=== PATIENT | female | born 1965 | race Caucasian/White ===

== ENCOUNTER 2020-01-19 07:30 | Day surgery (SDC) | payer BC ==
[2020-01-19] MEDS ORDERED: Ringers Lactate 1,000 ML IV ONE (08:36)
--- OUTSIDE RECORDS SUMMARY | 2020-01-19 08:50 | XMS REPORT ---
:1965 Author Organization eClinicalWorks Care Team Providers Name Role Phone Buchanan, Patricia Provider Role Unavailable Allergies No Known Allergies Problems Problem Type Condition Code Onset Dates Condition Statu s Problem Mixed hyperlipidemia E78.2 Active Problem Mild major depression, single F32.0 Active episode Problem Obstructive sleep apnea syndrome G47.33 Active Problem Skin tags, multiple acquired L91.8 Active Problem TB (pulmonary tuberculosis) A15.0 Active Problem Elevated liver enzymes R74.8 Activ e Problem Neuropathy of both feet G57.93 Acti ve Problem Essential (primary) hypertension I10 Active Medications No Known Medications Results No Known Results Summary Purpose eClinicalWorks Submission
--- OUTSIDE RECORDS SUMMARY | 2020-01-19 08:50 | XMS REPORT ---
:1965 Author Organization eClinicalWorks Care Team Providers Name Role Phone Patricia Miller Provider Role Unavailable Allergies, Adverse Reactions, Alerts Substance Reaction Event Type N.K.D.A. Info Not Available Non Drug Allergy Problems Problem Type Condition Code Onset Dates Condition Statu s Assessment Essential (primary) hypertension I10 Active Assessment Elevated liver enzymes R74.8 Activ e Assessment Mild major depression, single F32.0 Active episode Assessment Screening for colon cancer Z12.11 A ctive Assessment Mixed hyperlipidemia E78.2 Active Assessment Obstructive sleep apnea syndrome G47.33 Active Problem Essential (primary) hypertension I10 Active Problem Obstructive sleep apnea syndrome G47.33 Active Problem Mild major depression, single F32.0 Active episode Problem Elevated liver enzymes R74.8 Activ e Problem Neuropathy of both feet G57.93 Acti ve Problem Mixed hyperlipidemia E78.2 Active Medications Medication Code Code Instructions Start End Status Dosage System Date Date BuPROPion HCl ND 99214738026 200 MG Orally Active 1 tablet ER (SR) Once a day in the morning Milk Thistle [facility] 04162409728 500 MG Orally Active a s directed Zestoretic [facility] 79992718068 20-12.5 MG Active take 1 Orally Once a tablet by day mouth every day Metoprolol ND 47699477836 25 MG Orally Dec 28, Active 1 ta blet Succinate ER Once a day 2019 Vitamin C ND 39353394156 250 MG Orally Active 1 ta blet Once a day Zinc ND 97313925722 50 MG Orally Active 1 table t Once a day Lopid ND 16838662314 600 MG Orally Inactive 1 tab let Twice a day Gabapentin ND 73288205989 300 MG Active TAKE 2 CAPSULES BY MOUTH TWICE A DAY Rosuvastatin ND 50454382480 20 MG Orally Dec 28, Active 1 tablet Calcium Once a day 2019 Black Cohosh ND 01433003767 40 MG Orally Active as Hot Flash directed Relief Vitamin D-3 ND 79191145352 5000 UNIT Active 1 tabl et Orally Once a day Results No Known Results Summary Purpose eClinicalWorks Submission
--- OUTSIDE RECORDS SUMMARY | 2020-01-19 08:50 | XMS REPORT | Continuity of Care Document ---
:1965 Author Organization [facility] t Address [facility] [place] [address] Care Team Providers Name Role Phone Unavailable Unavailable Unavailable Problems Condition Condition Condition Status Onset Resolution Last Treating Co mments Source Name Details Category Date Date Treatment Clinician Date Essential Essential Problem Active [facility]primary[facility] (primary[facility] - hypertensi hypertensi Me moria on on l [facility] ent Clinics Obstructiv Obstructiv Problem Active [facility] sleep e sleep [facility] - apnea apnea Memoria syndrome syndrome l [facility] ent [facility] Neuropathy Neuropathy Problem Active [facility] of both of both [facility] - feet feet Memoria l [facility] ent [facility] Mixed Mixed Problem Active [facility] hyperlipid hyperlipid Miriam kes - emia emia [facility] ent Clinics Elevated Elevated Problem Active [facility] liver liver [facility] - enzymes enzymes [facility] Mild major Mild major Problem Active [facility] depression depression Miriam kes - , single , single Memori a episode episode l [facility] Screening Screening Diagnosis Active [facility] for colon for colon [facility] Allergies, Adverse Reactions, Alerts This patient has no known allergies or adverse reactions. Medications Ordered Filled Start Stop Current Ordering Indication Dosage Frequency Signature Comments Components Source Medication Medication Date Date Medication? Clinician (SIG) Name Name Metoprolol Metoprolol Yes Patricia [address] [facility] Succinate Succinate 12-28 [place] [facility] - ER ER 00:00: Memoria [facility] Rosuvastati Rosuvastati Yes Patricia [address] [facility] n Calcium n Calcium 8 [place] Luke s - 00:00: Memoria [facility] BuPROPion BuPROPion Yes Patricia [address] [facility] HCl ER (SR) HCl ER (SR) [place] in the [facility] - morning Memoria l [facility] ent Clinics Milk Milk Yes Patricia as [facility] Thistle Thistle [place] directed Luke s - Memoria l [facility] ent Clinics Zestoretic Zestoretic Yes Patricia take [address] [facility] [place] tablet by [facility] - mouth Memoria every day l [facility] Vitamin C Vitamin C Yes Patricia [address] [facility] [place] [facility] - [facility]oria l [facility] Zinc Zinc Yes Patricia [address] [facility] [place] [facility] - Memoria l [facility] ent [facility]ics Lopid Lopid Yes Patricia [address] [facility] [place] [facility] - Memoria l [facility] Gabapentin Gabapentin Yes Patricia TAKE [address] [facility] [place] CAPSULES Lukes - BY MOUTH Memoria TWICE A l DAY [facility]ics Black Black Yes Patricia as [facility] Cohosh Hot Cohosh Hot [place] directed [facility]ukes - Flash Flash Memoria Relief Relief l [facility]ics Vitamin D-3 Vitamin D-3 Yes Patricia [address] [facility] [place] [facility] - Memoria l [facility] ent Clinics Immunizations Ordered Filled Immunization Date Status Comments Sour e Immunization Name Name Flucelvax - single Flucelvax - single 2019-03-[address] [facility] - dose syringe dose syringe 00:00:00 [facility] Tb PPD intradermal, Tb PPD intradermal, 2017-11-[address] [facility] - 00:00[facility]00 [facility] Procedures This patient has no known procedures. Encounters Start End Encounter Admission Attending Care Care Encounter Source Date/Time Date/Time Type Type Clinicians Facility Department ID 2019-12-29 2019-12-29 Outpatient Akil Suarez [id number] [facility] 16:40:00 16:40:00 [facility] Medicine Medicine Outpati ent Clinics 2019-12-09 2019-12-09 [place] [place] [id number] [facility] 14:56:00 14:56:00 [facility] Medicine Medicine Outpati ent Clinics 2019-07-28 2019-07-28 [place] [id number] [facility] 16:45:00 16:45:00 [facility] Medicine Medicine Outpati ent Clinics 2019-06-30 2019-06-30 [place] [facility] [id number] [facility] 16:00:00 16:00:00 t [facility] Medicine l Medicine Outpati ent Clinics 2019-05-19 2019-05-19 [facility] [id number] [address] 08:36:00 08:36:00 t Specialty/U Miriam kes - Specialty rology [facility] a /Urology Clinic l Clinic Outpati ent Clinics 2019-04-21 2019-04-21 [facility] [id number] [address] 11:40:00 11:40:00 t [facility] l Medicine Outpati ent Clinics 2019-03-17 2019-03-17 [facility] [id number] [facility] 13:00:00 13:00:00 [facility] Medicine Outpati ent Clinics 2019-03-10 2019-03-10 [facility] [id number] [facility] 14:00:00 14:00:00 t [facility] Medicine Outpati ent Clinics 2018-09-09 2018-09-09 [facility] [id number] [facility] 13:00:00 13:00:00 t [facility] Medicine Outpati ent Clinics 2018-08-05 2018-08-05 [facility] [id number] [facility] 12:12:00 12:12:00 [facility] Medicine Outpati ent Clinics 2018-07-05 2018-07-05 [facility] [id number] [facility] 09:56:00 09:56:00 t [facility] Medicine Outpati ent Clinics 2018-07-03 2018-07-03 [facility] [id number] [facility] 14:50:00 14:50:00 [facility] Medicine Outpati ent Clinics 2018-06-27 2018-06-27 [facility] [id number] [facility] 10:40:00 10:40:00 [facility] Medicine Medicine Outpati ent Clinics 2018-06-17 2018-06-17 [place] [facility] [place] [id number] [facility] 14:00:00 14:00:00 [facility] Medicine Outpati ent Clinics 2017-12-11 2017-12-11 [place] [place] [id number] [facility] 09:20:00 09:20:00 [facility] Medicine Outpati ent Clinics 2017-12-10 2017-12-10 [place] [place] [id number] [facility] 17:31:00 17:31:00 t [facility] Medicine Outpati ent Clinics 2017-11-15 2017-11-15 [facility] [id number] [facility] 15:30:00 15:30:00 [facility] Medicine Outpati ent Clinics 2017-11-13 2017-11-13 [place] [facility] [id number] 10:00:00 10:00:00 [facility] Medicine Outpati ent Clinics Results This patient has no known results.
[2020-01-19] MEDS ORDERED: LIDOCAINE 1% MPF 5 ML VIAL ONE (09:08)
[2020-01-19] MEDS ORDERED: propofoL 200 MG/20 ML VIAL IV ONE ×3 (09:08→09:49)
--- NOTE | 2020-01-19 09:55 | ENDO RPT ---
[address], [address] COLONOSCOPY PROCEDURE REPORT EXAM DATE: 01/19/2020 PATIENT NAME: Randi Valdez MR #: [id number] BIRTHDATE: 1965 ATTENDING: Vinny Washignton DR STATUS: outpatient MOLD BLOWER: Dara Rodriguez RN and Ricardo Godinez [facility] INDICATIONS: The patient is a 54 yr old Female here for a colonoscopy due to colon cancer screening PROCEDURE PERFORMED: Colonoscopy with biopsy - cold polypectomy MEDICATIONS: Per Anesthesia. ESTIMATED BLOOD LOSS: None CONSENT: The patient understands the risks and benefits of the procedure and understands that these risks include, but are not limited to: sedation, allergic reaction, infection, perforation and/or bleeding. Alternative means of evaluation and treatment include, among others: physical exam, x-rays, and/or surgical intervention. The patient elects to proceed with this endoscopic procedure. DESCRIPTION OF PROCEDURE: During intra-op preparation period all mechanical medical equipment was checked for proper function. Hand hygiene and appropriate measures for infection prevention was taken. Procedure, possible complications, alternatives including, but not limited to possibility of bleeding, perforation, tear, infection, sepsis, need for surgery, need for blood transfusion, were explained to the patient. After the risks, benefits and alternatives of the procedure were thoroughly explained, Informed consent was verified, confirmed and timeout was successfully executed by the treatment team. The patient was placed in the left lateral position. A digital rectal exam was performed and revealed internal hemorrhoids. After appropriate level of anesthesia, the scope was passed. The EC-[id number] ([id number]) endoscope was introduced through the anus and advanced to the cecum, which was identified by both the appendix and ileocecal valve. The quality of the prep was poor. The instrument was then slowly withdrawn as the colon was fully examined. Scope withdrawal time was 15 minutes. COLON FINDINGS: Four small smooth sessile polyps with friable surfaces and mucous caps were found in the sigmoid colon and rectosigmoid colon. A polypectomy was performed with cold forceps. The resection was complete, the polyp tissue was completely retrieved and sent to histology. Moderate diverticulosis was noted in the sigmoid colon. No bleeding was noted from the diverticulosis. Moderate sized internal hemorrhoids were found. Retroflexed views revealed no abnormalities. The scope was then completely withdrawn from the patient and the procedure terminated. ADVERSE EVENTS: There were no complications. IMPRESSIONS: 1. Four small sessile polyps were found in the sigmoid colon and rectosigmoid colon; polypectomy was performed with cold forceps 2. Moderate diverticulosis was noted in the sigmoid colon 3. Moderate sized internal hemorrhoids RECOMMENDATIONS: 1. avoid NSAIDS for 2 weeks 2. await biopsy results 3. follow-up: office 2 week(s) 4. Monitor for any evidence of rectal bleeding. 5. hemorrhoidal hygiene 6. increase dietary water 7. low fiber / diverticular diet RECALL: Return in 2 year(s) for Colonoscopy, pending biopsy results. Vinny Washington DR eSigned: Vinny Washington DR 01/19/2020 9:55 AM cc: CPT CODES: ICD9 CODES: PATIENT NAME: Randi Valdez MR#: [id number]
[2020-01-19 10:47] VITALS: TEMP 96.3
[2020-01-19 10:50] VITALS: BP 102/61; O2SAT 97
== END 2020-01-19 10:33 | disposition home or self-care (01) ==
LOC: OR 07:30
PROVIDERS: ATTEND Surgery
PROC: 0DBN8ZX Excision of Sigmoid Colon, Via Natural or Artificial Opening Endoscopic, Diagnostic (ICD-10-PCS; principal; 2020-01-19 09:15)
DX: Z12.11 Encounter for screening for malignant neoplasm of colon (principal); K63.5 Polyp of colon; K57.30 Diverticulosis of large intestine without perforation or abscess without bleeding; K64.8 Other hemorrhoids; Z20.828 Contact with and (suspected) exposure to other viral communicable diseases; E78.5 Hyperlipidemia, unspecified; I10 Essential (primary) hypertension; G62.9 Polyneuropathy, unspecified; F41.9 Anxiety disorder, unspecified; F32.9 Major depressive disorder, single episode, unspecified; F17.210 Nicotine dependence, cigarettes, uncomplicated; Z79.899 Other long term (current) drug therapy
CPT/HCPCS: 88305; 45380; U0002; J2704 ×2; J7120